=== PATIENT | female | born 1940 | race Caucasian/White ===

== ENCOUNTER → 2019-12-08 14:06 | Outpatient (CLI) | payer MEDICARE, SELFPAY ==
--- NOTE | ~2019-12-08 | MM_ITS ---
EXAMINATION: MM screening [facility] BI w anne-marie HISTORY: Screening TECHNIQUE: Craniocaudal and mediolateral oblique 3-D tomosynthesis images were obtained and synthetic 2-D images were generated. CAD analysis was submitted and interpreted. COMPARISON: Comparison to multiple prior studies sequentially, with oldest reviewed study dated 6 . BREAST PARENCHYMAL COMPOSITION: The breasts are heterogeneously dense, which may obscure small masses . FINDINGS: There are developing masses in the medial aspect of the right breast. There are surgical ch anges in the right breast. A larger dominant mass laterally in the right breast is stable. (Stable wi thout evidence for malignancy. IMPRESSION: 1. Developing right breast masses. 2. Additional mammographic views and possible breast ultrasound are recommended. BI-RADS Category 0: Incomplete: Needs additional imaging evaluation. Reviewed, dictated and finalized at location A. IMPRESSION: 1. Developing right breast masses. 2. Additional mammographic views and possible breast ultrasound are recommended . BI-RADS Category 0: Incomplete: Needs additional imaging evaluation.
== END ==
PROVIDERS: PCP Family Medicine; Visit Provider Family Medicine
DX: Z12.31 Encounter for screening mammogram for malignant neoplasm of breast (principal); R92.8 Other abnormal and inconclusive findings on diagnostic imaging of breast
CPT/HCPCS: 77063; 77067

== ENCOUNTER → 2019-12-21 09:42 | Outpatient (CLI) | payer MEDICARE, SELFPAY ==
--- NOTE | ~2019-12-21 | MMUS_ITS ---
EXAMINATION: MM diagnostic mammo unilat RT, US breast RT complete HISTORY: Developing right breast masses reported on 12/08/2019 bilateral digital screening mammogram ex aminations TECHNIQUE: Additional 3-D tomosynthesis images of the right breast were performed and synthetic 2-D i mages were generated. CAD analysis was submitted and interpreted. High resolution complete right kait st ultrasound was performed. COMPARISON: 12/08/2019, 09/27/2018, 08/07/2017 bilateral digital screening mammogram examinations 06/09/2016 diagnostic bilateral mammogram and complete bilateral breast ultrasound examination FINDINGS: MAMMOGRAPHIC FINDINGS: Surgical clips and biopsy marker are noted on the right. There is suggestion of some architectural distortion in the inner aspect of the upper inner quadrant of the right breast. Sonographic correlation is recommended. No other significant new or developing density is evident compared to prior examinations. ULTRASOUND: There is a prominent irregular hypoechoic area with shadowing at 1:00 2 cm from the nipple, measuring approximately 1.2 cm dimension; this is smaller compared to 06/09/2016 ultrasound examination, at [facility] time it measured approximately 1.38 x 1.32 x 1.74 cm. Prior right reportedly benign breast biopsies were performed in 2014 and 2016.The diminished size of this irregular hypoechoic lesion may be consi stent with a joce scar. Six-month follow-up targeted ultrasound examination is recommended. At 10:00 9 cm on the nipple there is a 6 x 18 x 16 mm parallel circumscribed sonolucency compatible w ith simple cyst. No other suspicious finding of the right breast is noted. IMPRESSION: 1. Probable benign joce scar at 1:00 2 cm from nipple 2. Six-month targeted ultrasound follow-up is recommended. BI-RADS category 3, probably benign findings. Reviewed, dictated and finalized at location A. IMPRESSION: 1. Probable benign joce scar at 1:00 2 cm from nipple 2. Six-month targeted ultrasound follow-up is recommended. BI-RADS category 3, probably benign findings.
== END ==
PROVIDERS: PCP Family Medicine; Visit Provider Physician Assistant
DX: R92.8 Other abnormal and inconclusive findings on diagnostic imaging of breast (principal)
CPT/HCPCS: 76641; 77065

== ENCOUNTER → 2020-08-14 09:30 | Outpatient (CLI) | payer MEDICARE, SELFPAY ==
--- NOTE | ~2020-08-14 | US_ITS ---
EXAMINATION: US breast RT limited HISTORY: Six-month follow-up for probably benign sonographically detected right breast mass, history of right breast excisional biopsy TECHNIQUE: Limited right breast ultrasound performed. COMPARISON: 12/21/2019, 06/09/2016 FINDINGS: There is a stable spiculated hypoechoic mass at the 1:00 location 2 cm from the nipple with posterior acoustic shadowing and no internal vascularity. This corresponds to the area of prior exci sional biopsy and does not demonstrate suspicious interval change. No suspicious cystic or solid mass is identified. IMPRESSION: Changes associated with right breast excisional biopsy without sonographic evidence of malignancy. Ro utine screening mammography is recommended, due in December. BI-RADS Category 2: Benign finding(s). Reviewed, dictated and finalized at location A. IMPRESSION: Changes associated with right breast excisional biopsy without sonographic evid ence of malignancy. Routine screening mammography is recommended, due in . BI-RADS Category 2: Benign finding(s).
== END ==
PROVIDERS: PCP Family Medicine; Visit Provider Physician Assistant
DX: R92.8 Other abnormal and inconclusive findings on diagnostic imaging of breast (principal)
CPT/HCPCS: 76642

== ENCOUNTER 2021-02-25 13:44 | Outpatient (CLI) | payer MEDICARE, SELFPAY ==
--- NOTE | ~2021-02-25 | MM_ITS ---
EXAMINATION: MM screening [facility] BI w anne-marie HISTORY: Screening mammogram TECHNIQUE: Craniocaudal and mediolateral oblique 3-D tomosynthesis images were obtained and synthetic 2-D images were generated. CAD analysis was submitted and interpreted. COMPARISON: 12/21/2019, 12/08/2019, 09/27/2018 BREAST PARENCHYMAL COMPOSITION: The breasts are heterogeneously dense, which may obscure small masses . FINDINGS: There are stable masses of the right breast. There is no evidence of suspicious mass, calci fication, or architectural distortion to suggest malignancy in either breast. There has been no suspi cious interval change. IMPRESSION: 1. No mammographic evidence of malignancy. 2. Recommend routine screening mammography in one year. BI-RADS Category 2: Benign finding(s). Reviewed, dictated and finalized at location A. PLANTER
--- NOTE | ~2021-02-25 | DEXA_ITS ---
Bone Density Report Name: Becka Juarez Age: 80 Sex: Female Ethnicity: White Date of : 1940 Indication: postmenopausal; height loss; prior fracture; Referring Provider: Destini Arenas Study: Bone densitometry was performed. Exam Date: February 25, 2021 Accession number: [id number] Bone Density: Region BMD T-score Z-score Classification AP Spine (L2, L3) 0.916 -1.3 1.3 Osteopenia Femoral Neck (Left) 0.808 -0.4 1.9 Normal Total Hip (Left) 0.926 -0.1 1.8 Normal Total Hip Bilateral Avg 0.917 -0.2 1.8 Normal Femoral Neck (Right) 0.774 -0.7 1.6 Normal Total Hip (Right) 0.908 -0.3 1.7 Normal World Health Organization criteria for BMD impression classify patients as: Normal (T-score at or above -1.0), Osteopenia (T-score between -1.0 and -2.5), or Osteoporosis (T-score at or below -2.5). 10-year Fracture Risk: FRAX not reported because: Prior hip or vertebral fracture Clinical Information Provided by Patient: Have had a previous hip or vertebral fracture Has had a low trauma fracture Has used the following medications: Calcium Patient maximum height was 64.5 Menopause Age: 54 No regular weight bearing exercise Drinks caffeinated beverages Onset of menses at age 16 Number of children 2 Impression: The patient has low bone mass, based on the Total Spine T-score. The patient has risk factors, including: previous fracture. Discussion: INCREASED RISK OF FRACTURE DUE TO HISTORY OF FRACTURE. The patient's previous fracture puts the patient at high risk of a future fracture. In untreated patients, the risk of osteoporotic fracture increases approximately two-fold for each 1.0 SD decrease in T-score. Low bone density is not the only risk factor for fracture; also consider factors such as patient's age, frailty or poor health, risk of falling, risk of injury, previous osteoporotic fracture, family history of osteoporosis, cigarette smoking, low body weight, etc. Not everyone with a low trauma fracture has osteoporosis; osteomalacia and other metabolic bone disorders should also be considered. Patients who have osteoporosis should be evaluated for specific diseases and conditions (secondary causes) that may cause or contribute to bone loss and fracture risk. National Osteoporosis Foundation (NOF) recommends pharmacologic intervention for patients with a prior hip or vertebral fracture regardless of BMD T-score. The patient should follow a healthful lifestyle (good nutrition with adequate calcium and vitamin D, and appropriate weight-bearing exercise). Follow-Up: Consider a repeat BMD and Vertebral Fracture Assessment (VFA) exam in 2 years or sooner if medically necessary, to reassess this patient's status. Reported by: [facility] on 02/25/2021 2:25:00 PM. Reviewed, dic
== END 2021-02-25 13:45 | disposition home or self-care (01) ==
LOC: ANHIMG 13:51
PROVIDERS: PCP Family Medicine; Visit Provider Physician Assistant
DX: Z12.31 Encounter for screening mammogram for malignant neoplasm of breast (principal); Z78.0 Asymptomatic menopausal state; M85.88 Other specified disorders of bone density and structure, other site
CPT/HCPCS: 77063; 77067; 77080

== ENCOUNTER 2022-05-14 09:43 | Outpatient (CLI) | payer MEDICARE, SELFPAY ==
--- NOTE | ~2022-05-14 | MM_ITS ---
EXAMINATION: MM screening [facility] BI w nane-marie HISTORY: Screening mammogram TECHNIQUE: Craniocaudal and mediolateral oblique 3-D tomosynthesis images were obtained and synthetic 2-D images were generated. CAD analysis was submitted and interpreted. COMPARISON: 02/25/2021 bilateral screening mammogram 08/14/2020 Limited right breast ultrasound examination 12/21/2019 right diagnostic mammogram and complete right breast ultrasound examination 12/25/2019 bilateral screening mammogram BREAST PARENCHYMAL COMPOSITION: The breasts are heterogeneously dense, which may obscure small masses . FINDINGS: Right breast: Status post right partial mastectomy for breast cancer. There is a biopsy marker on the right. Possible new opacities in the mid central and anterior and posterior inner right breast diagnostic ri ght mammogram and right breast ultrasound examination are recommended. Left breast: There is no evidence of suspicious mass, calcification, or architectural distortion to suggest malig kelsie in the left breast. There has been no suspicious interval change. IMPRESSION: 1. Possible new right breast masses 2. Diagnostic right mammogram and right breast ultrasound examination are recommended. BI-RADS Category 0: Incomplete: Needs additional imaging evaluation. Reviewed, dictated and finalized at location A. DIESEL MOTOR MECHANIC IMPRESSION: 1. Possible new right breast masses 2. Diagnostic right mammogram and right breast ultrasound examination are recom mended. BI-RADS Category 0: Incomplete: Needs additional imaging evaluation.
== END 2022-05-14 09:44 | disposition home or self-care (01) ==
LOC: ANHIMG 09:44
PROVIDERS: PCP Family Medicine; Visit Provider Physician Assistant
DX: Z12.31 Encounter for screening mammogram for malignant neoplasm of breast (principal); R92.8 Other abnormal and inconclusive findings on diagnostic imaging of breast
CPT/HCPCS: 77063; 77067

== ENCOUNTER 2022-05-29 12:58 | Outpatient (CLI) | payer MEDICARE, SELFPAY ==
--- NOTE | ~2022-05-29 | MMUS_ITS ---
EXAMINATION: MM diagnostic susana RT w anne-marie, US breast RT complete HISTORY: Possible new right breast masses reported on May 14, 2022 screening mammogram TECHNIQUE: Additional 3-D tomosynthesis images of the right breast were performed and synthetic 2-D i mages were generated. CAD analysis was submitted and interpreted. High resolution complete right kait st ultrasound examination including all 4 quadrants and subareolar area was performed. COMPARISON: Numerous bilateral screening mammogram 02/25/2021 bilateral screening mammogram 08/14/2020 Limited right breast ultrasound 12/21/2019 diagnostic right mammogram and complete right breast ultrasound examination 12/08/2019, 09/23/2018 bilateral screening mammogram BREAST PARENCHYMAL COMPOSITION: The breasts are heterogeneously dense, which may obscure small masses . FINDINGS: MAMMOGRAPHIC FINDINGS: Again noted is postoperative change from partial mastectomy with surgical clips in the anterior inner aspect of the inner mid right breast and likely associated chronic scarring. 2 biopsy markers are again noted on the right. There are 3 posterior upper inner right breast circumscribed masses in a linear array, measuring appr oximately 3.5, 5 and 9 mm approximate maximal dimension. Chronic stable circumscribed low-density opacity is noted posteriorly in the upper outer right breast , measuring approximately 12 x 18 mm maximal dimension. ULTRASOUND: There is ill-defined hypoechogenicity and shadowing at 1:00 2 cm from the nipple, most likely postope rative surgical scarring. Residual or recurrent malignancy is not definitively excluded. Recommend cl inical correlation and perhaps MR imaging may be of benefit as well. 2:00 7 cm from nipple: There are 3 successive lesions, the largest measuring approximately 5.9 x 7.7 x 9 mm dimension. There is no internal vascularity or posterior shadowing. This lesion is suspicious, with some irregular and angular margins. Ultrasound-guided biopsy is recommended. There are 2 smalle r nearby hypoechoic approximately 2.5 mm and 3 mm hypoechoic lesions. Ultrasound-guided aspiration or biopsy of these 2 lesions is recommended as well. IMPRESSION: 1. Suspicious abnormalities 2. Ultrasound-guided biopsy of right breast 2:00 lesions is recommended BI-RADS category 4, suspicious findings. Reviewed, dictated and finalized at location A. Y CANDY MAKER IMPRESSION: 1. Suspicious abnormalities 2. Ultrasound-guided biopsy of right breast 2:00 lesions is recommended BI-RADS category 4, suspicious findings.
== END 2022-05-29 12:59 | disposition home or self-care (01) ==
PROVIDERS: PCP Family Medicine; Visit Provider Family Medicine
DX: R92.8 Other abnormal and inconclusive findings on diagnostic imaging of breast (principal)
CPT/HCPCS: 76641; 77061; 77065; G0279

== ENCOUNTER 2022-06-11 12:32 | Outpatient (CLI) | payer MEDICARE, MEDICAID, SELFPAY ==
--- NOTE | ~2022-06-11 | MMUS_ITS ---
EXAMINATION: US breast biopsy RT w image, MM post biopsy invasive RT DATE: 06/11/2022 13:43 (accession [id number]), 06/11/2022 13:52 (accession [id number]) INDICATION: Indeterminate mass in the upper inner quadrant of the right breast. Ultrasound-guided cor e biopsy is requested to evaluate for malignancy. TECHNIQUE AND FINDINGS: The risks and potential benefits of the procedure were discussed with the patient including bleeding and infection. A time out was performed. The skin of the right breast was prepared and draped in usua l sterile fashion. 1% lidocaine was used for superficial anesthesia. 1% lidocaine with epinephrine wa s used for deep anesthesia. A vacuum-assisted biopsy needle was advanced through to the outer edge of the region of interest from an inferomedial approach utilizing sonographic guidance. A total of two tissue core samples were obt ained through the lesion. The lesion was then no longer visible. A tissue marker clip was then placed at the biopsy site. Hemostasis was achieved. A sterile bandage was applied. The patient tolerated procedure well and there was no evidence of immediate complication. The patient was given verbal instructions to return to the Emergency Department in the event of severe breast pa in or rapid breast enlargement. A two view right breast mammogram was obtained to document tissue mar ker clip placement. IMPRESSION: 1. Successful ultrasound-guided vacuum-assisted biopsy of right breast mass with tissue marker placem ent. Reviewed, dictated and finalized at location A. RACTING MANAGER IMPRESSION: 1. Successful ultrasound-guided vacuum-assisted biopsy of right breast mass wit h tissue marker placement.
== END 2022-06-11 12:33 | disposition home or self-care (01) ==
PROVIDERS: PCP Family Medicine; Visit Provider Nurse Practitioner Gerontology
DX: R92.8 Other abnormal and inconclusive findings on diagnostic imaging of breast (principal)
CPT/HCPCS: 19083; 88305; 88342; A4648

== ENCOUNTER 2022-06-23 07:46 | Outpatient (CLI) | payer MEDICARE, SELFPAY ==
--- NOTE | ~2022-06-23 | NM_ITS ---
EXAMINATION: NM linda stress w perfusion DATE: 06/23/2022 11:28 INDICATION: Other forms of dyspnea TECHNIQUE: Rest images were obtained following intravenous administration of 10 mCi Tc99m tetrofosmin (Myoview). The patient was infused intravenously with Lexiscan (Regadenoson). Then, 32.5 mCi Tc99m t etrofosmin (Myoview) was administered intravenously, and stress images were obtained. Data was recons tructed into short axis and horizontal and vertical long axis SPECT images. Gated SPECT images were a lso obtained. COMPARISON: None. FINDINGS: There is no definite reversible or fixed perfusion abnormality to suggest ischemia or infar ction. There is normal left ventricular chamber size, wall motion and ejection fraction. Left ventr icular ejection fraction measures 67%. IMPRESSION: 1. Normal myocardial perfusion at rest and during stress. 2. Left ventricular ejection fraction measuring 67%. Reviewed, dictated and finalized at location A.
--- NOTE | 2022-06-23 07:54 | ECHO_ITS ---
Patient Info Name: Becka Juarez Age: 81 years : 1940 Gender: Female Ht: 61 in Wt: 169 lbs BSA: 1.85 m2 HR: 81 bpm BP: 146 / 34 mmHg Technical Quality: Fair Exam Date: 06/23/2022 8:16 AM Exam Location: [facility] Patient Status: Outpatient Admit Date: 06/23/2022 Staff Ordering Physician: Joe Fine DO Bag Sorter: Thompson Brown RDCS, RT Attending Provider: Joe Fine DO Referring Physician: Babatunde HACKETT; Exam Type: CA echo dop color flow w con Study Info Complete two-dimensional, color flow and Doppler transthoracic echocardiogram is performed. Strain analysis performed. Summary 1. Complete two-dimensional, color flow and Doppler transthoracic echocardiogram is performed. 2. Left ventricular chamber dimension is normal. 3. Definity contrast administered improved wall motion interpretation. 4. Left ventricular systolic function is normal, estimated at 60-65%. 5. The left ventricular diastolic function is grade I diastolic dysfunction. 6. E/e' 16 is elevated. 7. Moderate pulmonary hypertension, estimated pulmonary arterial systolic pressure is 50 mmHg. Left Ventricle E/e' 16 is elevated. Definity contrast administered improved wall motion interpretation. Left ventricular chamber dimension is normal. Left ventricular systolic function is normal, estimated at 60-65%. The left ventricular diastolic function is grade I diastolic dysfunction. Right Ventricle Right ventricular systolic function is normal based on normal TAPSE 2.1 cm. Right ventricular chamber dimension is not well visualized. Left Atria Left atrial chamber dimension is normal. Right Atria Right atrial chamber dimension is not well visualized. Aortic Valve The aortic valve is not well visualized. Cannot determine number of aortic valve leaflets. There is no aortic valve stenosis. There is no aortic valve regurgitation. Pulmonic Valve There is no pulmonic regurgitation. Mitral Valve There is no mitral valve stenosis. There is no mitral valve regurgitation. Tricuspid Valve The tricuspid valve leaflets are not well visualized. There is no tricuspid valve regurgitation. Moderate pulmonary hypertension, estimated pulmonary arterial systolic pressure is 50 mmHg. Pericardium/Pleural There is no pericardial effusion. Inferior Vena Cava Normal inferior vena cava with >50% collapse upon inspiration consistent with normal right atrial pressure, 5 mmHg. Aorta The aortic root size at the sinus of Valsalva is normal. Left Ventricular Outflow Tract Name Value Normal LVOT 2D LVOT Diameter 1.88 cm LVOT Doppler LVOT Peak Gradient 4 mmHg LVOT Mean Gradient 2 mmHg LVOT VTI 23.50 cm LVOT VTI/AV VTI Ratio 0.84 LVOT Stroke Volume 65.34 ml LVOT CO 5.41 l/min LVOT CI 2.93 L/min/m2 Mitral Valve Name Value
--- NOTE | 2022-06-23 07:54 | EST_ITS ---
Patient Info Name: Becka Juarez Age: 81 years : 1940 Gender: Female Ht: 61 in Wt: 168 lbs BSA: 1.84 m2 HR: 80 bpm BP: 152 / 92 mmHg Heart Rhythm: Sinus Rhythm Exam Date: 06/23/2022 10:08 AM Exam Location: [facility] Patient Status: Outpatient Admit Date: 06/23/2022 Staff Ordering Physician: Joe Fine DO Attending Provider: Joe Fine DO Exercise Technologist: Naomi Magallon CT Exercise Physician: Joe Fine DO Exam Type: CA stress linda w NM Study Info Indications R06.09 - Other forms of dyspnea A regadenoson stress test was performed. Summary 1. 1. Negative Lexiscan stress test for ischemic ST changes by ECG criteria. 2. 2. Baseline hypertension. 3. 3. Nuclear scan to follow and will be reported separately. Please correlate with it. 4. 4. Patient informed of the above results. Protocol: Lexiscan Stress ECG Details Stage: REST Duration (min): 0 min : 51 sec HR (bpm): 79 SBP (mmHg): 152 DBP (mmHg): 92 Stage: REST Duration (min): 6 min : 8 sec HR (bpm): 78 SBP (mmHg): 152 DBP (mmHg): 92 Stage: STAGE 1 Duration (min): 1 min : 0 sec HR (bpm): 107 SBP (mmHg): 182 DBP (mmHg): 76 Stage: RECOVERY Duration (min): 1 min : 0 sec HR (bpm): 118 SBP (mmHg): 182 DBP (mmHg): 76 Stage: RECOVERY Duration (min): 2 min : 0 sec HR (bpm): 114 SBP (mmHg): 182 DBP (mmHg): 76 Stage: RECOVERY Duration (min): 3 min : 0 sec HR (bpm): 114 SBP (mmHg): 178 DBP (mmHg): 85 Stage: RECOVERY Duration (min): 3 min : 1 sec HR (bpm): 114 SBP (mmHg): 178 DBP (mmHg): 85 Rest HR: 78 bpm Peak HR: 121 bpm Rest Sys BP: 152 mmHg Peak Sys BP: 182 mmHg Max Pred HR: 141 bpm % Max Pred HR: 86 % Target HR: 120 bpm Max RPP: 22,022 bpm*mmHg Termination Reason: Completed protocol Cardiac Symptoms: Shortness of breath Total Time: 1 min : 0 sec Rest Blank BP: 92 mmHg Peak Blank BP: 76 mmHg Total Dose: 0.4 mg Resting ECG Sinus rhythm, RBBB. Stress ECG No ST changes. Arrhythmias None. Report Signatures
== END 2022-06-23 07:47 | disposition home or self-care (01) ==
LOC: ANHCARD 07:52
PROVIDERS: PCP Family Medicine; Visit Provider Internal Medicine Cardiovascular Disease
DX: R06.09 Other forms of dyspnea (principal); I26.99 Other pulmonary embolism without acute cor pulmonale
CPT/HCPCS: 78452; 93017; A9502; C8929; J2785